=== PATIENT | male | born 1990 | race African-American/Black ===

== ENCOUNTER 2017-10-30 04:32 | Emergency (ER) | payer BC, OTHER ==
[~2017-10-30] VITALS: Ht 175.3 cm; Wt 78.5 kg
[~2017-10-30 04:32] MED LIST: BACT800T5 PO; LORTA5 PO
[2017-10-30 04:39] VITALS: BP 130/77; PULSE 68; RESP 16; TEMP 97.7; O2SAT 98
[2017-10-30] MEDS ORDERED: CYCL10TA PO (04:58)
[2017-10-30] MEDS ORDERED: DICL75TA PO (04:58)
[2017-10-30] MEDS ORDERED: ORPHENADRINE INJ 60 MG/2 ML AMP IM ONE (05:00)
[2017-10-30] MEDS ORDERED: KETOROLAC TROMETHAMINE 60 MG/2 ML (IM) VIAL IM ONE (05:00)
--- NOTE | 2017-10-30 05:06 | PD ---
HPI Chief Complaint: Back/ Neck Pain or Injury Time Seen by Provider: 04:52 Travel History International Travel<30 days: No Contact w/Intl Traveler<30days: No Traveled to known affect area: No History of Present Illness HPI 27-year-old black male presents emergency department with complains of left lower back pain. Patient states that he has a history of scoliosis. He was helping a friend lay side yesterday when he felt something pull in his lower back. He states that he had felt a pop. He continued to work and lay down the ceiling hoping that his back would feel better. When he woke this morning the pain had actually intensified. It is moderate in intensity worse with bending and movement. Some relief remaining still. PFSH Past Medical History Narrative Medical Scoliosis Diminished Hearing: No Musculoskeletal: Yes (CHRONIC BACK PAIN SCOLIOSIS) Tetanus Vaccination: < 5 Years Past Surgical History Surgical History: No Previous Surgery Social History Alcohol Use: No Tobacco Use: No Substance Use: No Allergies-Medications (Allergen,Severity, Reaction): Coded Allergies: No Known Allergies (Verified Adverse Reaction, Unknown, 10/30/17) Reported Meds & Prescriptions Reported Meds & Active Scripts Active Flexeril (Cyclobenzaprine HCl) 10 Mg Tab 10 Mg PO TID Diclofenac Sodium DR (Diclofenac Sodium) 75 Mg Tabdr 75 Mg PO BID Review of Systems Except as stated in HPI: all other systems reviewed are Neg Physical Exam Narrative GENERAL: Well-developed, well-nourished in no acute distress. Nontoxic appearing. HEAD: Normocephalic, atraumatic. EYES: Pupils equal round and reactive. Extraocular motions intact. No scleral icterus. No injection or drainage. ENT: TMs clear without erythema. The external auditory canals clear. Nose: clear . Posterior pharynx is pink and moist. No tonsillar edema or exudate. Uvula midline. Airway patent. NECK: Trachea midline.Supple, nontender, moves head freely. No central bony tenderness or spasm. CARDIOVASCULAR: Regular rate and rhythm without murmurs, gallops, or rubs. RESPIRATORY: Clear to auscultation. Breath sounds equal bilaterally. No wheezes , rales, or rhonchi. GASTROINTESTINAL: Abdomen soft, non-tender, nondistended. No hepato-splenomegaly , or palpable masses. No guarding. EXTREMITIES: No clubbing, cyanosis, or edema. No joint tenderness, effusion, or edema noted. BACK: No central bony tenderness to palpation of the dorsal lumbar spine. Patient has left paralumbar tenderness with mild spasm. Sits up in bed at 90. Negative straight leg raise. No saddle anesthesia. Without deformity or crepitance. No flank tenderness. Data Data Last Documented VS Vital Signs Date Time Temp Pulse Resp B/P (MAP) Pulse Ox O2 Delivery O2 Flow Rate FiO2 10/30/17 04:39 97.7 68 16 130/77 (94) 98 Room Air Orders Orders Ketorolac Inj (Toradol Inj) (10/30/17 05:00) Orphenadrine Inj (Norflex Inj) (10/30/17 05:00) Ed Discharge Order (10/30/17 04:57) [facility] Medical Decision Making Medical Screen Exam Complete: Yes Emergency Medical Condition: Yes Medical Record Reviewed: Yes Differential Diagnosis MDM: High Differential diagnoses: Fracture, sprain, strain, dislocation, contusion, neurovascular injury Narrative Course Patient given Toradol 60 mg and Norflex 60 mg IM. This is acute lumbar strain Diagnosis Primary Impression: Acute lumbar strain Referrals: [facility] 3 days Patient Instructions: General Instructions Departure Forms: Tests/Procedures, Work Release Special Instructions: No work 3 days. Additional Instructions: Rest. Ice for the next 3 days followed by heat . [place] and [place]. Follow-up with a primary care doctor in one week. Return to the ER for emergencies. Med/Other Pt SpecificInfo: Prescription(s) given Scripts Cyclobenzaprine (Flexeril) 10 Mg Tab 10 MG PO TID for Muscle Spasm, #30 TAB 0 Refills Prov: Oswaldo Oakley MD 10/30/[address] (Diclofenac Sodium DR) 75 Mg Tabdr 75 MG PO BID, #20 TAB 0 Refills Prov: Oswaldo Oakley MD 10/30/17 Disposition: 01 DISCHARGE HOME Condition: Stable Ashok Arellano Oct 30, 2017 05:06
== END 2017-10-30 05:23 | disposition home or self-care (01) ==
LOC: NEPD 04:32
DX: S39.012A Strain of muscle, fascia and tendon of lower back, initial encounter (principal); M41.9 Scoliosis, unspecified; X58.XXXA Exposure to other specified factors, initial encounter
CPT/HCPCS: 96372; 99283; J1885; J2360

== ENCOUNTER 2017-12-28 12:44 | Emergency (ER) | payer SELFPAY ==
[~2017-12-28] VITALS: Ht 175.3 cm; Wt 82.0 kg
[~2017-12-28 12:44] MED LIST changes: -BACT800T5 PO; +CYCL10TA PO; +DICL75TA PO; -LORTA5 PO
[2017-12-28 12:48] VITALS: BP 166/84; PULSE 67; RESP 14; TEMP 98.4; O2SAT 99
--- NOTE | 2017-12-28 12:52 | PD ---
HPI Chief Complaint: Laceration/Skin Injury Time Seen by Provider: 12:51 Travel History International Travel<30 days: No Contact w/Intl Traveler<30days: No Traveled to known affect area: No History of Present Illness HPI 27-year-old male with no significant medical history who is right-handed, presents emergency department for evaluation of a laceration to the volar surface of his left second digit. This was sustained yesterday when patient leaned up against a table, slicing his finger. Patient is concerned it may get infected. Denies any alterations in sensation or limitations in range of motion of the affected digit. He is uncertain of his tetanus status. Patient' s no other symptoms to report. PFSH Past Medical History Medical History: Denies Significant Hx Diminished Hearing: No Musculoskeletal: Yes (CHRONIC BACK PAIN SCOLIOSIS) Social History Alcohol Use: No Tobacco Use: No Substance Use: No Allergies-Medications (Allergen,Severity, Reaction): Coded Allergies: No Known Allergies (Verified Adverse Reaction, Unknown, 12/28/17) Reported Meds & Prescriptions Reported Meds & Active Scripts Active Ibuprofen 800 Mg Tab 800 Mg PO Q8H PRN Keflex (Cephalexin) 500 Mg Cap 500 Mg PO Q6H 5 Days Review of Systems Except as stated in HPI: all other systems reviewed are Neg Physical Exam Narrative GENERAL: Well-nourished, well-developed male patient, ambulatory and in no acute distress. SKIN: Focused skin assessment warm/dry. 1 cm in flap avulsion of the proximal left second digit on the volar surface. It is well approximated. Bleeding is controlled. No erythema or edema. HEAD: Normocephalic. EYES: No scleral icterus. No injection or drainage. NECK: Supple, trachea midline. No JVD or lymphadenopathy. CARDIOVASCULAR: Regular rate and rhythm without murmurs, gallops, or rubs. RESPIRATORY: Breath sounds equal bilaterally. No accessory muscle use. MUSCULOSKELETAL: No cyanosis, or edema. Patient is able flex and extend the affected digit. Cap refill within normal limits. Sensation intact distal affected digit. Data Data Last Documented VS Vital Signs Date Time Temp Pulse Resp B/P (MAP) Pulse Ox O2 Delivery O2 Flow Rate FiO2 12/28/17 12:54 18 12/28/17 12:48 98.4 67 166/84 (111) 99 Orders Orders Tetanus/Diphtheria Tox Adult (Tetanus/Di (12/28/17 13:00) Splint Or Brace Apply/Monitor (12/28/17 12:55) Ed Discharge Order (12/28/17 12:56) MDM Medical Decision Making Medical Screen Exam Complete: Yes Emergency Medical Condition: Yes Medical Record Reviewed: Yes Differential Diagnosis Laceration superficial versus deep versus avulsion versus abrasion Narrative Course 27-year-old male presents emergency department for evaluation of a laceration sustained to his left second digit yesterday. The area appears to be well approximated without any definitive signs of infection. Patient is updated on his tetanus. Wound care is complete and a dressing is applied. Patient is counseled on care and agrees to return immediately with acute worsening symptoms. Diagnosis Primary Impression: Laceration of finger of left hand Qualified Codes: S61.211A - Laceration without foreign body of left index finger without damage to nail, initial encounter Referrals: Primary Care Physician Patient Instructions: Acute Wound Care (GEN), General Instructions Additional Instructions: Keep the area clean and dry Follow-up with a primary care provider Return immediately with acute worsening symptoms Med/Other Pt SpecificInfo: Prescription(s) given Scripts Ibuprofen (Ibuprofen) 800 Mg Tab 800 MG PO Q8H Y for Pain/Inflammation, #30 TAB 0 Refills Prov: Julianna Lowery 12/28/17 Cephalexin (Keflex) 500 Mg Cap 500 MG PO Q6H for Infection for 5 Days, #20 CAP 0 Refills Prov: Julianna Lowery 12/28/17 Disposition: 01 DISCHARGE HOME Condition: Stable Julianna Lowery December 28, 2017 12:52
[2017-12-28] MEDS ORDERED: IBUP1TAB7 PO (12:57)
[2017-12-28] MEDS ORDERED: CEPH-460 PO (12:57)
[2017-12-28] MEDS ORDERED: TETANUS/DIPHTHERIA TOXOID ADULT 0.5 ML VIAL IM ONE (13:00)
== END 2017-12-28 13:19 | disposition home or self-care (01) ==
LOC: NEPD 12:44
DX: S61.211A Laceration without foreign body of left index finger without damage to nail, initial encounter (principal); W22.03XA Walked into furniture, initial encounter; Z23 Encounter for immunization
CPT/HCPCS: 90471; 90714